=== PATIENT | female | born 1970 | race Caucasian/White ===

== ENCOUNTER 2016-08-24 19:42 | Emergency (ER) | payer MEDICAID ==
--- NOTE | 2016-08-24 19:54 | EDPHY ---
H & P Time Seen by Provider: 08/24/16 19:53 HPI/ROS: CHIEF COMPLAINT: Rectal pain HISTORY OF PRESENT ILLNESS: This patient is a 45-year-old female who presents to the Emergency Department complaining of gradually increasing rectal pain over the past month. The pain occurs with bowel movements and is associated with a spasm-like feeling in her rectum after she has a bowel movement. She has been attempting to treat the pain by sitting in a warm bath following bowel movements over the past two weeks. She has increased her intake of fiber and has placed topical lidocaine without improvement to her complaints. She denies any additional complaints; no significant constipation or diarrhea. Denies history of hemorrhoids. REVIEW OF SYSTEMS: Constitutional: No fever, no chills Eyes: No visual changes ENT: No sore throat Respiratory: No cough, no shortness of breath Cardiac: No chest pain Gastrointestinal: No nausea, no vomiting, no abdominal pain Genitourinary: no dysuria Musculoskeletal: No leg pain or swelling Skin: No rash Neurological: No headache Psychiatric: depression Past Medical/Surgical History: Male to female transition procedure performed 10-12 years ago. Social History: Transgender female Non-smoker Smoking Status: Never smoked Physical Exam: General Appearance: Alert, pleasant Eyes: Pupils equal and round, no conjunctival pallor ENT, Mouth: Mucous membranes moist Neck: Normal inspection Respiratory: Lungs are clear to auscultation Cardiovascular: Regular rate and rhythm Gastrointestinal: Abdomen is soft and non-tender Rectal: No palpable hemorrhoid, anal fissure posteriorly with 3mm firm area of tenderness just adjacent to the fissure Neurological: A&O, nonfocal, normal gait Skin: Warm and dry Extremities: Normal inspection Psychiatric: Mood and affect normal Constitutional: Initial Vital Signs Temperature (C) 36.4 C 08/24/16 19:45 Heart Rate 86 08/24/16 19:45 Respiratory Rate 20 08/24/16 19:45 Blood Pressure 152/87 H 08/24/16 19:45 O2 Sat (%) 95 08/24/16 19:45 O2 Delivery Mode Room Air Allergies/Adverse Reactions: No Known Allergies Allergy (Unverified 08/24/16 19:50) Home Medications: Medication Instructions Recorded Diazepam [Valium 5 MG (*)] 5 mg PO Q12 PRN #10 tab 08/24/16 IBUPROFEN 08/24/16 LORAZEPAM 08/24/16 Lisinopril 08/24/16 Nitroglycerin [Rectiv] 1 inch LA Q12 PRN #1 oint...g. 08/24/16 PREMARIN 08/24/16 Seroquel 08/24/16 Zoloft 100mg (*) 08/24/16 traZODone 08/24/16 Medical Decision Making ED Course/Re-evaluation: 45-year-old female presents with an anal fissure. I discussed care for this including sitz baths and Ibuprofen. Given severe pain, with associated spasm, I prescribed Rectiv to alleviated the spasm. She will use Anusol HC for topical pain relief. Avoid constipation. She has a plan to follow-up with PCP on Friday. She is also given a referral to gastroenterology if needed. I discussed customary return precautions with her and she expresses agreement to this. She will be discharged home in good condition. Differential Diagnosis: Includes though is not limited to perirectal abscess, thrombosed hemorrhoid, pilonidal cyst. - Data Points Medications Given: Discontinued Medications Diazepam (Valium 5 Mg Prepack#4) 1 btl TAKEHOME EDNOW ONE Stop: 08/24/16 20:41 Last Admin: 08/24/16 20:35 Dose: 1 btl Departure - Departure Disposition: Home, Routine, Self-Care Clinical Impression: Anal fissure Condition: Good Instructions: Diazepam (By mouth), Anal Fissure (ED) Additional Instructions: 1. Take 600mg Ibuprofen three times daily. Use the Anusol HC cream in the area of pain just prior to passing a bowel movement. 2. Continue to bath in a warm sitz bath to help alleviate your pain. 3. Follow-up with your primary care provider on Friday as planned. 4. Return to the Emergency Department with uncontrollable pain, significant amount of blood in stool, abdominal pain, fever or chills, or for other serious concerns. Referrals: Sunita Mcghee MD [Primary Care Provider] - As per Instructions Prescriptions: Diazepam [Valium 5 MG (*)] 5 mg PO Q12 PRN #10 tab PRN Reason: Spasms Nitroglycerin [Rectiv] 1 inch LA Q12 PRN #1 oint...g. PRN Reason: anal fissure Report Scribed for: Margarita Nguyen Report Scribed by: Chrissy Michaels Date of Report: 08/24/16 Time of Report: 19:53 Physician Review and Approval Statement: 08/24/16 19:53 Portions of this note were transcribed by a healthcare or medical. I personally performed a history, physical exam, medical decision making, and confirmed accuracy of information the transcribed note.
[2016-08-24] MEDS ORDERED: DIAZEPAM 5 MG PREPACK#4 BTL TAKEHOME ONE ×2 (20:37→20:40)
[2016-08-24 20:48] VITALS: BP 151/84; PULSE 77; RESP 16; TEMP 98.1; O2SAT 96
== END 2016-08-24 20:40 | disposition home or self-care (01) ==
DX: K60.2 Anal fissure, unspecified (principal)

== ENCOUNTER → 2016-10-15 | Outpatient (CLI) | payer MEDICAID | LOC: FIMAGING 10:33 | PROVIDERS: ATTEND Family Medicine | DX: Z12.31 Encounter for screening mammogram for malignant neoplasm of breast (principal) | CPT/HCPCS: G0202 ==

== ENCOUNTER → 2017-10-23 | Outpatient (CLI) | payer MEDICAID | LOC: FIMAGING 08:01 | PROVIDERS: ATTEND Family Medicine | DX: Z12.31 Encounter for screening mammogram for malignant neoplasm of breast (principal) ==

== ENCOUNTER 2018-01-06 11:16 | Day surgery (SDC) | payer MEDICAID ==
[2018-01-06] MEDS ORDERED: BOTULINUM TOXIN TYPE A 100 UNIT VIAL IM ONE (12:00)
[2018-01-06] MEDS ORDERED: LR 1,000 ML IV SCH (12:00)
--- NOTE | 2018-01-06 13:01 | PDPROPOC ---
Sedation Plan of Care Sedation Plan of Care: vital signs stable, mental status noted, patient educated of risks, benefits, alternatives, patient can tolerate sedation ASA Classification: ASA 2 Planned drugs: fentanyl, midazolam Mallampati Score: Class 2 Mallampati Reference Image: Patient passed 3-3-2 rule?: Yes
--- NOTE | 2018-01-06 13:01 | PDGENHP ---
History & Physical Chief Complaint: anal fissure History of Present Illness: anal fissure not healing with conserative measures Pertinent Past, Social, Family History: FHx - no colon cancer PGF with polyps. no tobacco,no alcohol. psych, muscle spasm, cholesterol Relevant Physical Exam: A+Ox3. CTA. S1S2, RRR. +BS, soft, nt Cardiorespiratory Assessment: class 2
[2018-01-06] MEDS ORDERED: MIDAZOLAM 2 MG/2 ML VIAL ONE ×2 (13:08→13:27)
[2018-01-06] MEDS ORDERED: fentaNYL 100 MCG/2 ML INJ ONE (13:08)
[2018-01-06] MEDS ORDERED: fentaNYL 100 MCG/2 ML INJ IVP ONE (13:31)
[2018-01-06] MEDS ORDERED: MIDAZOLAM 10 MG/2 ML VIAL IVP ONE (13:31)
[2018-01-06 15:20] VITALS: BP 138/92
== END 2018-01-06 15:13 | disposition home or self-care (01) ==
LOC: FSGY 11:16
PROVIDERS: ATTEND Internal Medicine Gastroenterology
PROC: 0D5N8ZZ Destruction of Sigmoid Colon, Via Natural or Artificial Opening Endoscopic (ICD-10-PCS; principal; 2018-01-06 12:45)
DX: K60.2 Anal fissure, unspecified (principal); G47.33 Obstructive sleep apnea (adult) (pediatric); F41.8 Other specified anxiety disorders
CPT/HCPCS: J0585; J2250; J3010

== ENCOUNTER 2018-04-08 08:55 | Day surgery (SDC) | payer MEDICAID ==
[~2018-04-08 08:55] MED LIST: BOTULINUM TOXIN TYPE A 100 UNIT VIAL MISC ONE
[2018-04-08] MEDS ORDERED: LR 1,000 ML IV ONE (09:11)
--- NOTE | 2018-04-08 10:23 | PDGENHP ---
History & Physical Chief Complaint: anal fissure Pertinent Past, Social, Family History: non healing anal fissure. fhx PGF polyps. no tobacco no alcohol Relevant Physical Exam: A+Ox3. CTA. S1S2. +BS, soft nt Cardiorespiratory Assessment: class 2
[2018-04-08] MEDS ORDERED: MIDAZOLAM 2 MG/2 ML VIAL ONE (10:26)
[2018-04-08] MEDS ORDERED: fentaNYL 100 MCG/2 ML INJ ONE (10:27)
[2018-04-08] MEDS ORDERED: BOTULINUM TOXIN TYPE A 100 UNIT VIAL ID ONE (11:06)
[2018-04-08] MEDS ORDERED: MIDAZOLAM 2 MG/2 ML VIAL IVP ONE (11:07)
[2018-04-08] MEDS ORDERED: fentaNYL 100 MCG/2 ML INJ IVP ONE (11:07)
--- NOTE | 2018-04-08 11:11 | GIREPORT ---
[facility] Surgical Services - Endoscopy Department Patient Name: Margret Chaney Procedure Date: 04/08/2018 10:24 AM Patient Type: Outpatient Attending MD/ ER Physician: Travon Wyman MD Procedure: Flexible Sigmoidoscopy Indications: Anal Fissure Providers: Travon Wyman MD Referring MD: Claudia Hall MD, Sunita Mcghee MD Medicines: Fentanyl 100 micrograms IV, Midazolam 6 mg IV Complications: No immediate complications. Estimated blood loss: Minimal. Description of Procedure: After obtaining informed consent, the endoscope was passed under direct vision. Throughout the procedure, the patient's blood pressure, pulse, and oxygen saturations were monitored continuously. The Colonoscope with irrigation channel was introduced through the anus and advanced to the sigmoid colon. The flexible sigmoidoscopy was accomplished without difficulty. The patient tolerated the procedure. The quality of the bow el preparation was poor. Findings: An anal fissure was found on perianal exam. A moderate amount of solid stool was found in the rectum, making visualization difficult. The rectum and sigmoid colon appeared normal. A medium anal fissure was found in the anal canal. Area was successfull y injected with 100 units botulinum toxin. Estimated blood loss was minim al. The exam was otherwise without abnormality. Estimated Blood Loss: Estimated blood loss was minimal. Post Op Diagnosis: - Preparation of the colon was poor. - Anal fissure found on perianal exam. - Stool in the rectum. - The rectum and sigmoid colon are normal. - Anal fissure. - The examination was otherwise normal. - No specimens collected. Recommendation: - High fiber diet. - Miralax 1 capful (17 grams) in 8 ounces of water PO BID. Titrate to desired response - Colace capsule(s) orally 100 mg BID PRN. - I would like her stool to be the consistency of soft serve ice cream - Continue present medications. Currently on NTG cream - could use nifedipine or diltiazem as well. - Discharge patient to home (ambulatory). - Return to primary care physician as previously scheduled. - Return to referring physician as previously scheduled. - Thank you for allowing me to help in your patient's care. Do not hesi stuart to call with any questions. Attending Participation: I personally performed the entire procedure. Garo Gamez M.D Travon Wyman MD 04/08/2018 11:10:58 AM This report has been signed electronicallyMattfletcher Wyman MD Number of Addenda: 0 Note Initiated On: 04/08/2018 10:24 AM Total Procedure Duration Time 0 hours 5 minutes 12 seconds [email or web address]
[2018-04-08 12:00] VITALS: BP 130/75
== END 2018-04-08 12:00 | disposition home or self-care (01) ==
LOC: FSGY 08:55
PROVIDERS: ATTEND Internal Medicine Gastroenterology
DX: K60.2 Anal fissure, unspecified (principal)
CPT/HCPCS: J0585; J2250; J3010

== ENCOUNTER 2018-04-28 01:42 | Emergency (ER) | payer MEDICAID ==
[2018-04-28] MEDS ORDERED: NS 1,000 ML IV ONE ×2 (01:48→02:03)
[2018-04-28] MEDS ORDERED: ONDANSETRON 4 MG/2 ML VIAL IVP ONE (01:48)
[2018-04-28 01:55] LABS: PLATELET COUNT 272 10^3/uL (150-400)
[2018-04-28] MEDS ORDERED: ONDANSETRON 4MG PREPACK#2 BTL TAKEHOME ONE (03:17)
--- NOTE | 2018-04-28 03:18 | EDPHY ---
H & P Stated Complaint: n/v/d Time Seen by Provider: 04/28/18 01:44 HPI/ROS: HPI The patient presents with nausea, vomiting, diarrhea which has been present for the last 2 days though getting progressively worse. Patient is having nausea with vomiting episodes several times a day. Over the last 1 day, she has only been able to drink about 1 pt of water. She is urinating. She has had 3 episodes of loose stool. She has been unable to take her medications because of the nausea and vomiting. She has a temperature as high as 100.8 F. This is associated with epigastric abdominal pain which is moderate and worse when she tries to eat something. She denies any sick contacts. . REVIEW OF SYSTEMS 10 systems were reviewed and negative with the exception of the elements mentioned in the history of present illness. PMHx: Hypertension, history of anal fissures Soc Hx: Housed, primary care doctor is [facility] PHYSICAL General Appearance: Alert, no distress Eyes: Pupils equal and round no pallor or injection ENT, Mouth: Mucous membranes dry Respiratory: There are no retractions, lungs are clear to auscultation Cardiovascular: Regular rate and rhythm Gastrointestinal: Abdomen is soft and non-tender, no masses, bowel sounds normal Neurological: A&O, moves all extremities Skin: Warm and dry, no rashes Musculoskeletal: Neck is supple non tender Extremities: symmetrical, full range of motion Psychiatric: Patient is oriented X 3, there is no agitation Source: Patient, EMS Exam Limitations: No limitations - Personal History Current Tetanus Diphtheria and Acellular Pertussis (TDAP): Yes - Medical/Surgical History Hx Asthma: No Hx Chronic Respiratory Disease: No Hx Diabetes: No Hx Cardiac Disease: No Hx Renal Disease: No Hx Cirrhosis: No Hx Alcoholism: No Hx HIV/AIDS: No Hx Splenectomy or Spleen Trauma: No Other PMH: POST OP TRANSGENDER, DOUBLE HEMMHOROID SURG,htn, depression, anal fissure - Social History Smoking Status: Never smoked Constitutional: Initial Vital Signs Temperature (C) 36.8 C 04/28/18 01:42 Heart Rate 77 04/28/18 01:42 Respiratory Rate 16 04/28/18 01:42 Blood Pressure 158/91 H 04/28/18 01:42 O2 Sat (%) 97 04/28/18 01:42 O2 Delivery Mode Room Air Allergies/Adverse Reactions: No Known Allergies Allergy (Verified 12/15/17 16:22) Home Medications: Medication Instructions Recorded IBUPROFEN 08/24/16 Lisinopril 08/24/16 PREMARIN 08/24/16 Seroquel 08/24/16 Zoloft 100mg (*) 08/24/16 traZODone 08/24/16 Cyclobenzaprine 12/15/17 Nitroglycerin [Rectiv] MI PRN 12/15/17 Otc Sleep Aid 12/15/17 Proctocort 12/15/17 Ondansetron Odt [Zofran Odt 4 mg 4 mg PO Q4 PRN #10 tab 04/28/18 (*)] Medical Decision Making Differential Diagnosis: 47-year-old female with history of hypertension, anal fissures, presents from home brought in by ambulance with nausea, vomiting, diarrhea, fever, epigastric abdominal pain. Here, vital signs are normal, she does not have any abdominal tenderness. Differential diagnosis includes viral gastroenteritis, toxin mediated enterocolitis, gastritis, less likely biliary colic. In the emergency department, patient was given IV fluids and Zofran. Labs were unremarkable. She was able to tolerate p.o. Challenge. She will be discharged home. I suspect viral gastroenteritis ultimately. - Data Points Laboratory Results: Laboratory Results 04/28/18 01:50 04/28/18 01:50 04/28/18 04/28/18 01:50 01:50 WBC 11.86 10^3/uL H 10^3/uL (3.80-9.50) RBC 5.15 10^6/uL 10^6/uL (4.18-5.33) Hgb 15.1 g/dL g/dL (12.6-16.3) Hct 45.0 % % (38.0-47.0) MCV 87.4 fL fL (81.5-99.8) MCH 29.3 pg pg (27.9-34.1) MCHC 33.6 g/dL g/dL (32.4-36.7) RDW 13.2 % % (11.5-15.2) Plt Count 272 10^3/uL 10^3/uL (150-400) MPV 9.4 fL fL (8.7-11.7) Neut % (Auto) 67.9 % % (39.3-74.2) Lymph % (Auto) 22.3 % % (15.0-45.0) Douglas % (Auto) 8.7 % % (4.5-13.0) Eos % (Auto) 0.5 % L % (0.6-7.6) Baso % (Auto) 0.3 % % (0.3-1.7) Nucleat RBC Rel Count 0.0 % % (0.0-0.2) Absolute Neuts (auto) 8.05 10^3/uL H 10^3/uL (1.70-6.50) Absolute Lymphs (auto) 2.64 10^3/uL 10^3/uL (1.00-3.00) Absolute Monos (auto) 1.03 10^3/uL H 10^3/uL (0.30-0.80) Absolute Eos (auto) 0.06 10^3/uL 10^3/uL (0.03-0.40) Absolute Basos (auto) 0.04 10^3/uL 10^3/uL (0.02-0.10) Absolute Nucleated RBC 0.00 10^3/uL 10^3/uL (0-0.01) Immature Gran % 0.3 % % (0.0-1.1) Immature Gran # 0.04 10^3/uL 10^3/uL (0.00-0.10) Sodium 136 mEq/L mEq/L (135-145) Potassium 4.0 mEq/L mEq/L (3.5-5.2) Chloride 99 mEq/L mEq/L (97-110) Carbon Dioxide 26 mEq/l mEq/l (22-31) Anion Gap 11 mEq/L mEq/L (6-14) BUN 12 mg/dL mg/dL (7-23) Creatinine 0.8 mg/dL mg/dL (0.6-1.0) Estimated GFR > 60 Glucose 135 mg/dL H mg/dL (70-100) Calcium 9.2 mg/dL mg/dL (8.5-10.4) Total Bilirubin 0.4 mg/dL mg/dL (0.1-1.4) AST 18 IU/L IU/L (14-46) ALT 22 IU/L IU/L (9-52) Alkaline Phosphatase 81 IU/L IU/L (38-126) Total Protein 7.6 g/dL g/dL (6.3-8.2) Albumin 4.1 g/dL g/dL (3.5-5.0) Lipase 32 IU/L IU/L (23-300) Medications Given: Discontinued Medications Sodium Chloride (Ns) 1,000 mls @ 0 mls/hr IV EDNOW ONE; Wide Open PRN Reason: Protocol Stop: 04/28/18 01:49 Last Admin: 04/28/18 01:56 Dose: 1,000 mls Sodium Chloride (Ns) 1,000 mls @ 0 mls/hr IV EDNOW ONE; Wide Open PRN Reason: Protocol Stop: 04/28/18 02:04 Last Admin: 04/28/18 02:17 Dose: 1,000 mls Ondansetron HCl (Zofran) 4 mg IVP EDNOW ONE Stop: 04/28/18 01:49 Last Admin: 04/28/18 01:56 Dose: 4 mg Departure - Departure Disposition: Home, Routine, Self-Care Clinical Impression: Nausea, vomiting and diarrhea Condition: Good Instructions: Acute Nausea and Vomiting (ED) Additional Instructions: Please return to the emergency department if your worse in any way. Referrals: Sunita Mcghee MD [Primary Care Provider] - As per Instructions Prescriptions: Ondansetron Odt [Zofran Odt 4 mg (*)] 4 mg PO Q4 PRN #10 tab PRN Reason: Nausea/Vomiting, Can'T Take Po
[2018-04-28 03:47] VITALS: BP 150/85
== END 2018-04-28 03:46 | disposition home or self-care (01) ==
LOC: EDUNIT#
DX: R11.2 Nausea with vomiting, unspecified (principal); R10.13 Epigastric pain; R19.7 Diarrhea, unspecified; E86.9 Volume depletion, unspecified; I10 Essential (primary) hypertension
CPT/HCPCS: 96374; J2405